=== PATIENT | female | born 1980 | race Hispanic/Latino ===

== ENCOUNTER 2019-01-28 17:40 | Emergency (ER) | payer OTHER ==
[2019-01-28] MEDS ORDERED: KEFLEX500 M1 PO ×2 (20:00→20:15)
[2019-01-28] MEDS ORDERED: BACTRIM DS1 TAB PO ×2 (20:00→20:15)
[2019-01-28 20:08] VITALS: BP 128/78
== END 2019-01-28 20:17 | disposition home or self-care (01) ==
LOC: ED 17:40
DX: L02.212 Cutaneous abscess of back [any part, except buttock and flank] (principal)

== ENCOUNTER 2019-01-30 20:12 | Emergency (ER) | payer OTHER ==
[~2019-01-30 20:12] MED LIST: BACTRIM DS1 TAB PO; KEFLEX500 M1 PO
[2019-01-30 20:58] VITALS: BP 118/72
== END 2019-01-30 20:58 | disposition home or self-care (01) ==
LOC: ED 20:12
DX: Z48.01 Encounter for change or removal of surgical wound dressing (principal)

== ENCOUNTER 2019-02-01 14:03 | Emergency (ER) | payer OTHER ==
[~2019-02-01] VITALS: Ht 152.4 cm; Wt 52.0 kg
[2019-02-01 14:53] VITALS: BP 111/64
== END 2019-02-01 14:52 | disposition home or self-care (01) ==
LOC: ED 14:03
DX: Z48.01 Encounter for change or removal of surgical wound dressing (principal)